=== PATIENT | female | born 1970 | race Two or more races ===

== ENCOUNTER → 2020-04-28 | Day surgery (SDC) | payer BC ==
[~2020-04-28] VITALS: Ht 170.2 cm; Wt 66.7 kg
[~2020-04-28] MED LIST: BUPIVACAINE 0.25% INJ 50ML VIAL ONE; CYCL10TA6 PO; GABA800T97 PO; HYDROmorphone HCL 2 MG/ML VL IV PRN; LIDOCAINE W/ EPINEPHRINE 1% 20ML VIAL ONE; MIDAZOLAM HCL 1MG/1ML-2 ML VIAL ONE; MORPHINE SULFATE 4 MG/ML SYR/VIAL IV PRN; ONDANSETRON HCL 4 MG/2 ML VIAL IV PRN; ONDANSETRON HCL 4 MG/2 ML VIAL ONE; OXYC-963 PO; PROPOFOL 10 MG/ML 20 ML IV ONE; SODIUM CHLORIDE LOCK 20 ML ONE; VANCOMYCIN HCL 1000 MG VL ONE; ceFAZolin 1GM/50ML 100 ML IV ONE; fentaNYL CITRATE 100 MCG/2 ML VL ONE
[2020-04-28 12:22] VITALS: BP 128/62
== END | disposition home or self-care (01) ==
LOC: SUR 07:56
PROVIDERS: ATTEND Anesthesiology
DX: M54.16 Radiculopathy, lumbar region (principal); G89.29 Other chronic pain; E66.9 Obesity, unspecified; M79.89 Other specified soft tissue disorders; Z98.84 Bariatric surgery status; Z20.822 Contact with and (suspected) exposure to COVID-19; Z98.890 Other specified postprocedural states; Z79.899 Other long term (current) drug therapy; Z87.891 Personal history of nicotine dependence
CPT/HCPCS: 22869; 72100; 76000; C1821; J0690; J2250; J2405; J2704; J3010; J3370; J3490; U0003